=== PATIENT | male | born 1970 | race Caucasian/White ===

== ENCOUNTER 2017-01-16 10:59 | Emergency (ER) | payer OTHER ==
--- NOTE | ~2017-01-16 | CT2 ---
[facility]. [facility] A Service of [facility] RADIOLOGY TEXT RESULTS PATIENT: CAROL ANN HUBBARD LOCATION: SED : 66 UNIT #: [id number] AGE: [address]: Braden Aguayo MD SEX: M ORDER DR: [id number] [place] [id number] E MR#: [id number] Acc #: [id number] NAME: CAROL ANN HUBBARD : 1970 SEX: M STUDY DATE/TIME: 01/16/2017 12:32 UNIT: SED ROOM: STUDY DESCRIPTION: CT Abd and Pelv W Cont Attending Physician: Braden Aguayo M.D. Ordering Physician: Braden Aguayo M.D. Primary Care Physician: Primary Care Physician No MEDICAL IMAGING REPORT This report is preliminary unless electronic signature is present. EXAM CT abdomen and pelvis with contrast DATE: 01/16/2017 HISTORY 46-year-old male with complaints of right side abdominal pain under the rib cage for 3 days. COMPARISON PA chest with right rib detail series 11/26/2016. No prior CT abdomen and pelvis at this institution for comparison. PROCEDURE 5 mm axial images from lung bases through lesser trochanters after intravenous contrast and enteric contrast administration. Sagittal coronal reformatted images were obtained. The CT exam was performed with one or more of the following radiation dose reduction techniques: automatic exposure control, adjustment of mA and/or kV according to patient size, and iterative reconstruction. Abdomen findings: There is mild linear subsegmental atelectasis in the right lower lobe without basilar consolidation. Median sternotomy changes are present. The more median sternotomy wires are fractured with lower sternal dehiscence, by nearly 1.6 cm. The fractured median sternotomy wires can also be seen on the more remote July 2060 examination, as well. The imaged right ribs appear intact. The appendix is normal. The liver, gallbladder, spleen, pancreas, adrenals and kidneys are within normal limits. No gallstones or abnormal STS. [facility] A Service of [facility] RADIOLOGY TEXT RESULTS PATIENT: CAROL ANN HUBBARD LOCATION: SED : 66 UNIT #: [id number] AGE: [address]: Braden Aguayo MD SEX: M ORDER DR: biliary dilation is seen. The bowel appears nonthickened, nondilated, noninflamed. No free air free fluid is evident. Pelvis: Findings: Urinary bladder, prostate and rectum are within normal limits. Seminal vesicle calcifications are present bilaterally which are nonspecifically and can be seen in cases of diabetes. No acute osseous abnormalities within the pelvis. Disc bulges are present at L3-4, L4-5, and L5-S1. IMPRESSION 1. The lower most median sternotomy wires are fractured and there is sternal dehiscence of nearly 1.6 cm. 2. No acute displaced right rib fracture is seen. 3. The gallbladder appears unremarkable and no abnormal biliary dilation is evident. 4. Normal appendix. No acute findings within the abdominopelvic cavities proper. 5. Disc bulges are present at L3-4, L4-5 and L5-S1. 6. Linear subsegmental atelectasis within the right lower lobe. Dictated by... Alecia Walter M.D. THIS IS AN ELECTRONICALLY VERIFIED REPORT Alecia Walter M.D. at 01/17/2017 8:34 AM DAMION/susi TD: 01/16/2017 15:27 JOB #: [id number] MEDICAL IMAGING REPORT Page 1 of 1
[~2017-01-16 10:59] MED LIST: ASPIRIN81 MG; BISAC-EVAC5 MG; CLARITIN10 M2; COREG PO; DESYREL150 M1; DOCUSATE SODIU100 MG; FENOFIBRATE40 MG PO; FLORAJEN460 MG; HUMALOG100 U/M1; LANTUS100 U/ML; LISINOPRIL10 MG; LYRICA100 MG PO; METFORMIN HCL500 M1 PO; MIRALAX17 GM; NEURONTIN100 MG; POTASSIUM CHLO10 MEQ PO; TESSALON PERLE100 M1 PO; TESTONE CI200 MG/1 M; TRAMADOL HCL50 M1; VITAMIN D50000 UNIT; ZOFRAN; ZYRTEC1 MG/1 ML PO
[2017-01-16 11:16] LABS: BASOPHIL# 0.2 X10e3 (0-0.3); BASOPHIL% 1.9 % (0-2.5); EOSINOPHIL# 0.5 X10e3 (0-0.7); EOSINOPHIL% 5.3 % (0.0-7.0); HEMATOCRIT 48.3 % (38.0-50.0); HEMOGLOBIN 16.4 gm/dL (13.0-16.0); LYMPHOCYTE# 3.8 X10e3 (1.0-3.5); LYMPHOCYTE% 37.6 % (17.0-45.0); MEAN CELL VOLUME 90.1 FL (83-96); MEAN CORPUSCULAR HEMOGLOBIN 30.6 PG (28-34); MEAN CORPUSCULAR HGB CONC 33.9 g/dL (30-36); MONOCYTE# 1.1 X10e3 (0-1.0); MONOCYTE% 10.3 % (3.0-12.0); NEUTROPHIL# 4.6 X10e3 (1.5-7.1); NEUTROPHIL% 44.9 % (40-75); PLATELET COUNT 311 X10e3 (140-420); RED BLOOD COUNT 5.36 X10e (3.90-5.60); RED CELL DISTRIBUTION WIDTH 14.2 % (11.0-15.5); WHITE BLOOD COUNT 10.2 X10e3 (4.0-10.5)
[2017-01-16 11:16] LABS: URINE SOURCE CLEAN CATCH
[2017-01-16 11:17] LABS: DIFF IND NO
[2017-01-16 11:17] LABS: URINE APPEARANCE CLEAR; URINE BILIRUBIN NEG (NEG); URINE BLOOD NEG (NEG); URINE COLOR YELLOW; URINE GLUCOSE 300 MG/DL (NORM); URINE KETONE NEG (NEG); URINE LEUKOCYTE ESTERASE NEG (NEG); URINE NITRATE NEG (NEG); URINE PH 5.5 (5-8); URINE PROTEIN NEG (NEG); URINE SPECIFIC GRAVITY 1.025 (1.003-1.035); URINE UROBILINOGEN 0.2 MG/DL (NORM)
[2017-01-16 11:18] LABS: MICRO INDICATED? NO
[2017-01-16 11:39] LABS: ALBUMIN SERUM 4.5 g/dL (3.5-5.0); BILIRUBIN, DIRECT 0.1 mg/dL (0.0-0.2); BILIRUBIN,INDIRECT 0.4 mg/dL (0.0-0.9); BILIRUBIN,TOTAL 0.5 mg/dL (0.2-2.0); GLOM FILT RATE Estimated 88.6 mL/min (>60); POTASSIUM 4.5 mmol/L (3.5-5.1); PROTEIN TOTAL SERUM 8.4 g/dL (6.0-8.3)
== END 2017-01-16 14:47 | disposition home or self-care (01) ==
LOC: SED 10:59
PROVIDERS: Emergency Medicine
DX: R10.31 Right lower quadrant pain (principal); R07.89 Other chest pain; R11.0 Nausea; E10.8 Type 1 diabetes mellitus with unspecified complications; Z98.890 Other specified postprocedural states; Z79.84 Long term (current) use of oral hypoglycemic drugs; Z88.8 Allergy status to other drugs, medicaments and biological substances; Z79.4 Long term (current) use of insulin
CPT/HCPCS: 36415; 74177; 80048; 80076; 81003; 82150; 83690; 85025; 99284; Q9967

== ENCOUNTER → 2017-02-02 | Outpatient (CLI) | payer OTHER ==
--- NOTE | ~2017-02-02 | US6 ---
[facility] A Service of [facility] RADIOLOGY TEXT RESULTS PATIENT: CAROL ANN HUBBARD LOCATION: [facility] [[email or web address]] : [birth year] UNIT #: [id number] AGE: [address]: Raymond Julian MD SEX: M ORDER DR: [id number] [facility] [address] [place], [place] [address] [id number] O MR#: [id number] Acc #: [id number] NAME: CAROL ANN HUBBARD : 1970 SEX: M STUDY DATE/TIME: 02/02/2017 10:07 UNIT: [facility] [[email or web address] ROOM: STUDY DESCRIPTION: US Abdominal Limited Attending Physician: Raymond Julian M.D. Referring Physician: Raymond Julian M.D. Ordering Physician: Raymond Julian M.D. Primary Care Physician: Raymond Julian M.D. MEDICAL IMAGING REPORT This report is preliminary unless electronic signature is present EXAM Right upper quadrant ultrasound 02/02/2017 HISTORY Right upper quadrant abdominal pain with nausea for 3 months. FINDINGS The liver demonstrates an increase in echotexture with attenuation of the ultrasound beam characteristic of fatty infiltration. No cystic or solid mass lesions were seen in the liver. The intra and extrahepatic bile ducts are not dilated. The gallbladder is normal with no evidence of cholelithiasis, wall thickening or pericholecystic fluid. The common duct measures 5 mm. The pancreas and right kidney are normal. IMPRESSION Fatty infiltration of the liver. Otherwise negative right upper quadrant ultrasound Dictated by... Timmy Salamanca M.D. THIS IS AN ELECTRONICALLY VERIFIED REPORT Timmy Salamanca M.D. at 02/03/2017 7:55 AM JONATHAN/portia TD: 02/02/2017 15:25 JOB #: [id number] MEDICAL IMAGING REPORT Page 1 of 1 COPY
== END | disposition home or self-care (01) ==
LOC: CGUS 09:20
DX: R10.11 Right upper quadrant pain (principal); K76.0 Fatty (change of) liver, not elsewhere classified
CPT/HCPCS: 76705

== ENCOUNTER 2017-03-14 19:09 | Emergency (ER) | payer OTHER ==
--- NOTE | ~2017-03-14 | CR63 ---
[facility] A Service of [facility] RADIOLOGY TEXT RESULTS PATIENT: CAROL ANN HUBBARD LOCATION: SED : 66 UNIT #: [id number] AGE: [address]: Leonel Thomas MD SEX: M ORDER DR: [id number] [place] [id number] E MR#: [id number] Acc #: [id number] NAME: CAROL ANN HUBBARD : 1970 SEX: M STUDY DATE/TIME: 03/14/2017 19:36 UNIT: SED ROOM: STUDY DESCRIPTION: CR Chest 2 View Attending Physician: Leonel Thomas M.D. Ordering Physician: Leonel Thomas M.D. Primary Care Physician: Raymodn Julian M.D. MEDICAL IMAGING REPORT This report is preliminary unless electronic signature is present. EXAM PA and lateral chest. HISTORY Cough and congestion for 2 weeks. FINDINGS 2 views of the chest demonstrate the cardiac size and pulmonary vascularity are normal. Multiple fractured sternotomy wires are similar to 08/01/2016, although the most inferior sternotomy wire fragment has migrated further inferiorly. No airspace infiltrates. No pleural effusions. IMPRESSION No acute findings. Dictated by... Brock Dave M.D. THIS IS AN ELECTRONICALLY VERIFIED REPORT Brock Dave M.D. at 03/15/2017 5:28 PM BRENNAN/nadia TD: 03/15/2017 00:33 JOB #: [id number] MEDICAL IMAGING REPORT Page 1 of 1
== END 2017-03-14 20:26 | disposition home or self-care (01) ==
LOC: SED 19:09
DX: J06.9 Acute upper respiratory infection, unspecified (principal); L03.116 Cellulitis of left lower limb; E11.9 Type 2 diabetes mellitus without complications; I25.10 Atherosclerotic heart disease of native coronary artery without angina pectoris; I10 Essential (primary) hypertension; Z79.899 Other long term (current) drug therapy; Z79.84 Long term (current) use of oral hypoglycemic drugs; Z79.4 Long term (current) use of insulin; Z88.8 Allergy status to other drugs, medicaments and biological substances
CPT/HCPCS: 71020; 82947; 99283